=== PATIENT | female | born 1945 | race Caucasian/White ===

== ENCOUNTER 2016-05-29 13:18 | Inpatient (IN) | payer MEDICARE, OTHER ==
--- NOTE | ~2016-05-29 | CN ---
Consultation Report [facility] [address] [place]. [address] NAME: GISELLA TELLO : 47 STATUS : ADM Luz Marina PAT#: [id number] AGE: 70 ADM/REG DATE : 05/29/16 MR#: [id number] REPORT SERV DATE: 05/30/16 DICTATED BY: DATE: REPORT STATUS : Draft TRANSCRIBED BY: MODL DATE: 05/30/16 NEUROLOGY CONSULTATION DATE OF CONSULTATION: 05/30/2016 REASON FOR CONSULT: Left-sided numbness, concern for stroke. HISTORY OF PRESENT ILLNESS: This is a 70-year-old female who presented to [facility] secondary to acute onset of left-sided numbness with the symptoms still in the left lower extremity as well as left chest and in the left upper extremity with the patient reports the symptom in the left upper extremity was more of a pressure-like sensation. The patient also complains of numbness in the left lower extremity, but otherwise, denies any weakness and denies any involvement in the face. The patient denies diplopia and denies any vision changes. Denies any dysarthria or language difficulties. The patient denied similar symptoms in the past, but reports roughly two years ago, the patient does have some difficulties with the left knee giving out, but no other significant problems in the past. The patient denies previous history of numbness, tingling, and denies any previous history of vision changes. The patient denies any recent illness, but does report some associated dyspnea upon hospital admission. Denies recent fevers, chill, nausea, vomiting, and denies recent chest pain. The patient does report increased psychosocial stress prior to the hospitalization. Otherwise, denies any changes in medication. PAST MEDICAL HISTORY: The patient denies any history of hypertension. The patient does have a history of allergic retinitis, osteoarthritis, as well as gastroesophageal reflux disease, as well as prior history of back pain. FAMILY HISTORY: Significant for history of coronary artery disease and atrial fibrillation. SOCIAL HISTORY: The patient does report tobacco usage. She denies alcohol or illicit drug usage. HOME MEDICATIONS: Consist of Zyrtec, Flonase, Advil, Prilosec, Mucinex, as well as over-the- counter vitamin B 12, vitamin D with calcium and Artificial Tears. ALLERGIES: THE PATIENT WAS NOTED TO HAVE ALLERGY TO PERCOCET, CODEINE, EPINEPHRINE, AUGMENTIN, POLYMYXIN B. REVIEW OF SYSTEMS: Negative except for those mentioned in the HPI. PHYSICAL EXAMINATION: VITAL SIGNS: At the time of evaluation, the patient was noted to have vital signs with T- max of 98.2, heart rates of 54 to 72, respirations of 16 to 20, blood pressure of 107 to 154 over 54 to 71. Consultation Report [address] [place]. [address] NAME: GISELLA TELLO : 47 STATUS : ADM Luz Marina PAT#: [id number] AGE: 70 ADM/REG DATE : 05/29/16 MR#: [id number] REPORT SERV DATE: 05/30/16 DICTATED BY: DATE: REPORT STATUS : Draft TRANSCRIBED BY: MODL DATE: 05/30/16 GENERAL: The patient is well developed, well nourished, in no acute distress. CARDIOVASCULAR: Regular rate and rhythm. No carotid bruits were otherwise auscultated. PULMONARY: Clear to auscultation bilaterally. NEUROLOGICAL: Generally, the patient is alert and oriented to person, place, year, and month. Follows simple and two-step commands. No dysarthria. No aphasia was otherwise noted at the time of evaluation. Intact registration and recall. Cranial nerves 2 through 12, pupils equal, round, and reactive to light. Extraocular eye movement was noted to be intact with intact peripheral vision. No visual neglect was otherwise appreciated. Symmetrical facial expression. Sensation midline. Tongue normal. Normal palatal movement. Normal hearing. EXTREMITIES: The patient was noted to have 5/5 bilateral upper and lower extremity strength. No pronator drift. Symmetrical sensation in bilateral upper and lower extremities. Deep tendon reflex was 2+ throughout. Upgoing toe and bilateral plantar reflexes. Normal [id number]-[id number] examination without ataxia with the patient noted to have normal steady gait. LABORATORY STUDIES: At the time of evaluation demonstrated a white blood cell count of 8.1, hemoglobin of 14.1, hematocrit of 41.2, and platelet count of 218. Chemistry panel: Sodium 146, potassium 4.0, chloride of 112, bicarb 26, BUN of 13, creatinine 0.64, glucose of 110, calcium of 8.6, magnesium of 2.0. Ammonia of 22. Serum troponin was less than 0.02 x3, serum TSH was 2.02. CT scan of the brain otherwise demonstrated no acute process with the patient's MRI of the brain demonstrated no acute process. Chronic white matter diseases were otherwise noted. The C-spine MRI demonstrated degenerative changes, but no significant spinal cord compression or cord abnormality was noted. Echocardiogram report is currently pending. Carotid Doppler study demonstrated no significant carotid stenosis in bilateral internal carotid artery. IMPRESSION: Left-sided numbness. The patient still complains of subjective numbness and tingling involving the chest and left arm. MRI of her brain as well as C-spine otherwise demonstrated no acute events and no cord compression was noted. Concern for possible hypertensive emergency versus stress-related response. We will also check fasting lipid panel and hemoglobin A1c. Echocardiogram report is otherwise pending. The patient was also counseled regarding tobacco cessation. We are recommending continue aspirin and Lipitor. RECOMMENDATIONS: 1. Echocardiogram, pending. 2. Fasting lipid panel, hemoglobin A1c, folate, and vitamin B12. 3. Continue aspirin and Lipitor. 4. Counseled the patient regarding tobacco cessation. [facility]/MODL Consultation Report [address] [place]. [address] NAME: GISELLA TELLO : 47 STATUS : ADM Luz Marina PAT#: [id number] AGE: 70 ADM/REG DATE : 05/29/16 MR#: [id number] REPORT SERV DATE: 05/30/16 DICTATED BY: DATE: REPORT STATUS : Draft TRANSCRIBED BY: FINESSE DATE: 05/30/16 Hilario Dash MD / [id number] CC: Manjit Pike Jr, MD John Laramore, M.D.
--- NOTE | ~2016-05-29 | DS ---
Discharge Summary [facility] [address] [place]. [address] NAME: GISELLA TELLO : 47 STATUS : DIS Luz Marina PAT#: [id number] AGE: 70 ADM/REG DATE : 05/29/16 MR#: [id number] REPORT SERV DATE: 06/01/16 DICTATED BY: JR. PIKE WILLIAM JOHN DATE: 05/31/16 REPORT STATUS : Draft TRANSCRIBED BY: FINESSE DATE: 05/31/16 ADMISSION DATE: 05/29/2016 DISCHARGE DATE: 05/31/2016 DISCHARGE DIAGNOSES: 1. Left upper extremity and left lower extremity tingling. 2. Cervical spondylosis with some C3 nerve root impingement. 3. Chest pressure. 4. Hypertension. 5. Tobacco abuse. OPERATIONS, PROCEDURES, AND TREATMENTS: 1. Transthoracic echocardiogram, done 05/30/2016, which showed normal left ventricular size and systolic function with ejection fraction of 55% and normal left ventricular diastolic function, normal right ventricular size and systolic function. No significant valvular disease. 2. Left ankle X-ray done, 05/29/2016, showed no obvious fracture dislocation. 3. CT of the brain done 05/29/2016, showed mild generalized atrophy without acute pathology. 4. Portable chest x-ray, done 05/29/2016, showed normal lungs. 5. Carotid flow study, done 05/30/2016, showed no significant carotid stenosis with antegrade vertebral flow. 6. MRI of the brain, done 05/30/2016, showed no evidence of acute infarction or bleed with ooly-rb-rrdniwtx atrophy. There was evidence of a moderate amount of old deep white matter, small vessel ischemic change without infarct or bleed. 7. MRI of the cervical spine, done 05/30/2016, showed mild spondylitic changes, most significantly in the right neuroforaminal encroachment at C3-C4 space which could relate to intermittent right C4 nerve root irritation clinically. DISCHARGE MEDICATIONS: 1. Lipitor 80 mg orally daily. 2. Zyrtec 10 mg orally daily. 3. Flonase 2 sprays twice a day as needed. 4. Omeprazole 20 mg orally daily as needed. 5. Aspirin 81 mg orally daily. 6. Mucinex 600 mg twice a day as needed. 7. Vitamin B12 over the counter every morning. CONSULTING PHYSICIAN: Dr. Hilario Dash of Neurology. HOSPITAL COURSE: The patient was a 70-year-old female who presented to the emergency room on 05/29/2016 with left-sided tingling and chest pressure. The patient said she started having positional left ankle pain which worsened with dorsiflexion which progressed to a radiculopathy-like tingling, upper leg, which subsequently included the arm. She also admitted to a chest pressure which was nonexertional without other associated symptoms. For complete details of the admission history, physical, and presenting data, please see DrKaelyn Discharge Summary [address] [address] NAME: GISELLA TELLO : 47 STATUS : DIS Luz Marina PAT#: [id number] AGE: 70 ADM/REG DATE : 05/29/16 MR#: [id number] REPORT SERV DATE: 06/01/16 DICTATED BY: JR. PIKE WILLIAM JOHN DATE: 05/31/16 REPORT STATUS : Draft TRANSCRIBED BY: FINESSE DATE: 05/31/16 Chris's dictated history and physical. The admission history did show a blood pressure of 184/86, temperature of 97.6, heart rate 86, respiratory rate 16. Neurologic exam was unremarkable. Laboratory and CT of the head were unremarkable. The patient was admitted to the Clinical Decision Unit. She was seen in consultation by Dr. Hilario Dash of Neurology. She had an MRI of the brain, carotid ultrasound, and echocardiogram, all of which were unremarkable. She was given aspirin and high-dose statin medication for presumed transient ischemic attack. She also had a cervical spine MRI which did show some C3-C4 nerve root encroachment on the left side; however, this does not explain total body tingling. She had no pain in the C3-C4 dermatome. Regarding the patient's chest pain, the patient felt this was due to anxiety. She requested no stress test to be done. She discussed this with Dr. Pablo, who apparently saw her socially in the hospital. The patient understands the risk therein. The patient will be discharged home if okay with Neurology today, 05/31/2016, on aspirin and high-intensity statin. She will follow with Dr. Pablo on Saturday as scheduled. This discharge took 33 minutes for patient encounter, coordination of care, and documentation. DISCHARGE DIET: Regular. ACTIVITY: As tolerated. FOLLOWUP: With Dr. Pablo, Saturday. For discharge exam and laboratory, please see daily progress note. WJ[facility]/MODL Manjit Pike Jr, MD / [id number]
--- NOTE | ~2016-05-29 | HP ---
History And Physical [place] [address] [facility] [place]. [address] NAME: GISELLA TELLO : 47 STATUS : ADM Luz Marina PAT#: [id number] AGE: 70 ADM/REG DATE : 05/29/16 MR#: [id number] REPORT SERV DATE: 05/29/16 DICTATED BY: PELON TAVERA DATE: 05/29/16 REPORT STATUS : Draft TRANSCRIBED BY: MODL DATE: 05/29/16 DATE OF ADMISSION: 05/29/2016 REASON FOR ADMISSION: Left-sided tingling particularly with chest pressure, is nonexertional. HISTORY OF PRESENT ILLNESS: This is a 70-year-old female, who sees Dr. Pablo as her primary care physician, known history of osteoarthritis, GERD, allergic rhinitis. PAST SURGICAL HISTORY: Hysterectomy, tonsillectomy, unclear back surgery at young age, hammertoe surgery in her bilateral fifth toes, and cataract surgery. The patient started having positional left ankle pain that worsened with dorsiflexion, plantarflexion, and movement with pressure and weight on the left lower extremity. She states she seems to have radiculopathy like tingling radiating up her leg, is positional. The patient though since noon today, started having left-sided upper and lower extremity numbness and paresthesias, particularly tingling with "my arm feels like it is blowing up." The patient also endorses left-sided chest pressure; however nonexertional, not musculoskeletal or reproducible. No vision changes. No headache. Some mild perioral numbness she told me. The patient's symptoms of numbness have improved, but have not stopped. Was given nitroglycerin and aspirin in the emergency department. CT of the brain did not show any acute pathology. The patient endorses early family history of coronary artery disease in her father before the age of 65. PAST MEDICAL HISTORY: See above. PAST SURGICAL HISTORY: See above. ALLERGIES: SEE THE LIST. HOME MEDICATIONS: See the list. SOCIAL HISTORY: Is smoking cigarettes actively a pack a day, possible [id number] history. Social alcohol use and episodic, does not drink every day or every other day. No drug use. FAMILY HISTORY: See above. Early family history of CAD. OBJECTIVE: VITAL SIGNS: She came in 184 systolic over 86, 97.6 temp, 82 pulse, 16 History And Physical [place] [address] [place]. [address] NAME: GISELLA TELLO : 47 STATUS : ADM Luz Marina PAT#: [id number] AGE: 70 ADM/REG DATE : 05/29/16 MR#: [id number] REPORT SERV DATE: 05/29/16 DICTATED BY: PELON TAVERA DATE: 05/29/16 REPORT STATUS : Draft TRANSCRIBED BY: MODAngie DATE: 05/29/16 respirations, 95% on room air. GENERAL: No acute distress. HEENT: PERRLA. No scleral icterus. CARDIOVASCULAR: Regular rate and rhythm. No murmur. No carotid bruits auscultated. RESPIRATORY: Decreased breath sounds bibasilarly. Otherwise, no wheezes, no crackles. ABDOMEN: Nontender, nondistended. Positive bowel sounds. EXTREMITIES: No edema, no ecchymosis. NEURO: A and O x4/4. GCS 15. Appears to have 5/5 power bilateral upper and lower extremities. Her face is with smile, symmetric. Tongue is midline. She claimed to have symmetric sensation to light finger touch on her left lower extremity anterior skin. PSYCH: Normal affect and mood. LABORATORY DATA: White count is 9.5, hemoglobin 15.2, 256,000 platelets, 4.2 potassium, 27 bicarb, 0.83 creatinine, 10 BUN, 98 sugar, 147 sodium, albumin 3.5, calcium 9.2, troponins negative. INR is 1.0. She has an EKG that is going to be pending. ASSESSMENT AND PLAN: 1. Left upper extremity plus left lower extremity tingling. 2. Chest pressure, nonexertional. Coronary artery disease risk factors are hypertension, smoking, early family history of coronary artery disease. 3. Accelerated hypertension, hypertensive urgency. PLAN: We will go ahead and admit this patient to observation. As a result of her CT being negative, we will evaluate it and get an MRI of her brain and her neck. She does have some left upper extremity tingling and MRI of her lumbar spine as she does have some radiculopathy like paresthesia that is positional when she sits in a chair. We will also go ahead and place her on empiric aspirin and Lipitor 80. Permissive hypertension until MRI results. Neurology consultation given her symptoms are still persistent, but yet much less. She has left lower extremity tingling in addition to left upper extremity tingling. If her MRI is negative for any pathology, we could consider possible stress test, as she does have cardiac risk factors, hypertension, early family history, and smoking. May consider possible EMG regarding this positional nerve impingement like sensation. See rest of my orders. All questions were answered. Took well over 60 minutes to do. Reference [employer]. WST/MODL Pelon Tavera DO / [id number] CC: Pelon Tavera DO History And Physical [address] [address] NAME: KATIAGISELLA CALDWELL LEWIS : 47 STATUS : ADM Luz Marina PAT#: [id number] AGE: 70 ADM/REG DATE : 05/29/16 MR#: [id number] REPORT SERV DATE: 05/29/16 DICTATED BY: PELON TAVERA DATE: 05/29/16 REPORT STATUS : Draft TRANSCRIBED BY: MODL DATE: 05/29/16 Dr. Pablo
[2016-05-29 14:14] LABS: BASOPHILS 0.4 %; BASOPHILS ABSOLUTE 0.04 10/3/uL (0.0-0.16); EOSINOPHILS 2.3 %; EOSINOPHILS ABSOLUTE 0.22 10/3/uL (0.0-0.53); ER CBC TAT 0 Hrs 05 Mins; HEMOGLOBIN 15.2 g/dL (12.0-16.0); IMMATURE GRANULOCYTES 0.2 %; IMMATURE GRANULOCYTES ABSOLUTE 0.02 10/3/uL (0.0-0.11); LYMPHOCYTES 29.1 %; LYMPHOCYTES ABSOLUTE 2.77 10/3/uL (0.67-4.30); MANUAL DIFF NO %; MEAN CORPUS HGB CONC 33.8 g/dL (32.0-36.0); MEAN CORPUSCULAR HEMOGLOB 31.7 pg (26.0-34.0); MEAN CORPUSCULAR VOLUME 93.9 fL (80-100); MEAN PLATELET VOLUME 9.9 fL (9.2-13.0); MONOCYTES 5.7 %; MONOCYTES ABSOLUTE 0.54 10/3/uL (0.21-1.20); NEUTROPHILS 62.3 %; NEUTROPHILS ABSOLUTE 5.92 10/3/uL (2.02-8.40); PLATELET COUNT 256 10/3/uL (150-400); RBC DISTRIBUTION WIDTH 13.7 % (12.0-16.0); RED CELL COUNT 4.79 10/6/uL (4.0-5.6); WHITE BLOOD CELLS 9.5 10/3/uL (4.5-10.5)
[2016-05-29 14:23] LABS: PARTIAL THROMBO TIME 25.3 SEC (22.5-37.2)
[2016-05-29 14:24] LABS: PROTIME (NOT ORD) 13.1 SEC (12.0-14.5)
[2016-05-29 14:31] LABS: BUN (BLOOD UREA NITROGEN) 10 MG/DL (6-23); CALCIUM, SERUM 9.2 MG/DL (8.5-10.4); CHEST PAIN PROFILE TAT 0 Hrs 22 Mins; CHLORIDE, SERUM 112 MMOL/L (96-112); CO2 (CARBON DIOXIDE) 27 MMOL/L (24-34); CREATININE 0.83 MG/DL (0.55-1.02); GFR AFRICAN AMERICAN 83 ML/MIN (>=60); GFR NON AFRICAN AMERICAN 72 ML/MIN (>=60); GLUCOSE, SERUM 98 MG/DL (60-99); POTASSIUM, SERUM 4.2 MMOL/L (3.5-5.3); SODIUM, SERUM 147 MMOL/L (135-148); TROPONIN I <0.02 NG/ML (<0.05)
[2016-05-29] MEDS ORDERED: ZYRTEC ALLGY10 MG PO (16:05)
[2016-05-29] MEDS ORDERED: MUCINEX DM PO (16:06)
[2016-05-29] MEDS ORDERED: PRILOSEC OTC20 MG PO (16:06)
[2016-05-29] MEDS ORDERED: FLONASE NAS (16:06)
[2016-05-29] MEDS ORDERED: OTC VITAMIN B-12 PO (16:07)
[2016-05-29] MEDS ORDERED: OTC VITAMIN D3 PO (16:07)
[2016-05-29] MEDS ORDERED: ADVIL PO (16:08)
[2016-05-29] MEDS ORDERED: OTC CALCIUM PO (16:08)
[2016-05-29] MEDS ORDERED: [UNRECOGNIZED DRUG - OTHER] OPH (16:09)
[2016-05-29 21:31] LABS: CK-MB < 0.5 NG/ML; CPK 57 U/L (0-200); PHOSPHORUS, SERUM 3.5 MG/DL (2.5-4.5); TROPONIN I <0.02 NG/ML (<0.05)
[2016-05-30 02:36] LABS: BASOPHILS 0.4 %; BASOPHILS ABSOLUTE 0.03 10/3/uL (0.0-0.16); EOSINOPHILS ABSOLUTE 0.32 10/3/uL (0.0-0.53); HEMATOCRIT 41.2 % (36.0-48.0); HEMOGLOBIN 14.1 g/dL (12.0-16.0); IMMATURE GRANULOCYTES 0.2 %; IMMATURE GRANULOCYTES ABSOLUTE 0.02 10/3/uL (0.0-0.11); LYMPHOCYTES 42.6 %; LYMPHOCYTES ABSOLUTE 3.45 10/3/uL (0.67-4.30); MEAN CORPUS HGB CONC 34.2 g/dL (32.0-36.0); MEAN CORPUSCULAR HEMOGLOB 32.2 pg (26.0-34.0); MEAN CORPUSCULAR VOLUME 94.1 fL (80-100); MEAN PLATELET VOLUME 9.8 fL (9.2-13.0); MONOCYTES 5.3 %; MONOCYTES ABSOLUTE 0.43 10/3/uL (0.21-1.20); NEUTROPHILS 47.5 %; NEUTROPHILS ABSOLUTE 3.85 10/3/uL (2.02-8.40); PLATELET COUNT 218 10/3/uL (150-400); RBC DISTRIBUTION WIDTH 13.5 % (12.0-16.0); RED CELL COUNT 4.38 10/6/uL (4.0-5.6); WHITE BLOOD CELLS 8.1 10/3/uL (4.5-10.5)
[2016-05-30 02:38] LABS: MANUAL DIFF NO %
[2016-05-30 02:57] LABS: BUN (BLOOD UREA NITROGEN) 13 MG/DL (6-23); CALCIUM, SERUM 8.6 MG/DL (8.5-10.4); CHLORIDE, SERUM 112 MMOL/L (96-112); CK-MB < 0.5 NG/ML; CO2 (CARBON DIOXIDE) 26 MMOL/L (24-34); CPK 45 U/L (0-200); CREATININE 0.64 MG/DL (0.55-1.02); GFR AFRICAN AMERICAN 106 ML/MIN (>=60); GFR NON AFRICAN AMERICAN 91 ML/MIN (>=60); GLUCOSE, SERUM 110 MG/DL (60-99); PHOSPHORUS, SERUM 3.5 MG/DL (2.5-4.5); SODIUM, SERUM 146 MMOL/L (135-148); TROPONIN I <0.02 NG/ML (<0.05)
[2016-05-30 15:03] LABS: CHOL/HDL RATIO(NOT ORDER) 3.9 (0-5); CHOLESTEROL 208 MG/DL (< 200); HDL CHOLESTEROL 53 MG/DL (> 49); LDL CHOLESTEROL 120 MG/DL (< 130); NON-HDL CHOLESTEROL 155 MG/DL (< 160); TRIGLYCERIDE 178 MG/DL (< 150)
[2016-05-30 15:04] LABS: FOLATE 13.9 NG/ML (>5.2)
[2016-05-31 06:01] LABS: BASOPHILS 0.4 %; BASOPHILS ABSOLUTE 0.03 10/3/uL (0.0-0.16); EOSINOPHILS 3.9 %; EOSINOPHILS ABSOLUTE 0.28 10/3/uL (0.0-0.53); HEMATOCRIT 44.5 % (36.0-48.0); HEMOGLOBIN 15.1 g/dL (12.0-16.0); IMMATURE GRANULOCYTES 0.1 %; IMMATURE GRANULOCYTES ABSOLUTE 0.01 10/3/uL (0.0-0.11); LYMPHOCYTES ABSOLUTE 2.47 10/3/uL (0.67-4.30); MEAN CORPUS HGB CONC 33.9 g/dL (32.0-36.0); MEAN CORPUSCULAR HEMOGLOB 31.7 pg (26.0-34.0); MEAN CORPUSCULAR VOLUME 93.5 fL (80-100); MEAN PLATELET VOLUME 10.1 fL (9.2-13.0); MONOCYTES 6.1 %; MONOCYTES ABSOLUTE 0.44 10/3/uL (0.21-1.20); NEUTROPHILS 55.5 %; NEUTROPHILS ABSOLUTE 4.04 10/3/uL (2.02-8.40); PLATELET COUNT 242 10/3/uL (150-400); RBC DISTRIBUTION WIDTH 13.3 % (12.0-16.0); RED CELL COUNT 4.76 10/6/uL (4.0-5.6); WHITE BLOOD CELLS 7.3 10/3/uL (4.5-10.5)
[2016-05-31 06:12] LABS: MANUAL DIFF NO %
[2016-05-31 06:14] LABS: BUN (BLOOD UREA NITROGEN) 18 MG/DL (6-23); CHLORIDE, SERUM 109 MMOL/L (96-112); CO2 (CARBON DIOXIDE) 24 MMOL/L (24-34); CREATININE 0.67 MG/DL (0.55-1.02); GFR AFRICAN AMERICAN 104 ML/MIN (>=60); GFR NON AFRICAN AMERICAN 90 ML/MIN (>=60); GLUCOSE, SERUM 114 MG/DL (60-99); SODIUM, SERUM 142 MMOL/L (135-148)
[2016-05-31] MEDS ORDERED: ASAB PO (11:31)
[2016-05-31] MEDS ORDERED: LIPITOR80 MG PO (11:31)
== END 2016-05-31 12:37 | disposition home or self-care (01) | DRG 552 ==
LOC: ER 13:18 → CDU1 16:25
PROVIDERS: Internal Medicine; Physician Assistant
DX: M47.22 Other spondylosis with radiculopathy, cervical region (principal); G45.9 Transient cerebral ischemic attack, unspecified; I10 Essential (primary) hypertension; I16.0 Hypertensive urgency; F17.210 Nicotine dependence, cigarettes, uncomplicated; F41.9 Anxiety disorder, unspecified; M19.90 Unspecified osteoarthritis, unspecified site; K21.9 Gastro-esophageal reflux disease without esophagitis; Z88.5 Allergy status to narcotic agent; Z88.1 Allergy status to other antibiotic agents; Z88.3 Allergy status to other anti-infective agents; R07.89 Other chest pain
CPT/HCPCS: 70450; 70551; 71010; 72141; 73610-LT; 80048; 80061; 82140; 82550; 82553; 82607; 82746; 83036; 83735; 84100; 84443; 84484; 85025; 85610; 85730; 93005; 93880; 97161-GP; 99285; A9270-GY; C8929; G8978-CH-GP; G8979-CH-GP; G8980-CH-GP; Q9957